=== PATIENT | male | born 1965 | race Two or more races ===

== ENCOUNTER 2018-02-27 14:38 | Emergency (ER) | payer OTHER ==
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
[2018-02-27 14:59] VITALS: BMI 32.3
[2018-02-27 15:44] LABS: BASO % 0.4 % (0-2.0); EOS % 1.1 % (0-4.5); HEMATOCRIT 40.3 % (35.4-49); HEMOGLOBIN 13.2 GM/dL (11.7-16.9); LYMPH % 8.2 % (8-40); MCH 28.3 pg (25.7-33.7); MCHC 32.7 g/dl (32.0-35.9); MEAN CELL VOLUME 86.3 fl (80-96); MONO % 6.2 % (3.8-10.2); NEUT % 84.1 % (42.8-82.8); PLATELET COUNT 206 K/MM3 (134-434); RBC 4.67 M/mm3 (4.00-5.60); RDW 13.9 % (11.9-15.9); WHITE BLOOD COUNT 9.2 K/mm3 (4.0-10.0)
--- NOTE | 2018-02-27 16:28 | EKG ---
Test Reason : Blood Pressure : / mmHG Vent. Rate : 096 BPM Atrial Rate : 096 BPM P-R Int : 176 ms QRS Dur : 094 ms QT Int : 380 ms P-R-T Axes : 049 007 043 degrees QTc Int : 480 ms NORMAL SINUS RHYTHM POSSIBLE LEFT ATRIAL ENLARGEMENT PROLONGED QT ABNORMAL ECG NO PREVIOUS ECGS AVAILABLE Confirmed by MD Eran, Yovani ([id number]) on 02/27/2018 4:27:44 PM Referred By: Confirmed By:Yovani Barillas MD
[2018-02-27 16:30] LABS: ALBUMIN 3.9 g/dl (3.4-5.0); ALK PHOS 100 U/L (45-117); ANION GAP 7 MMOL/L (8-16); BILIRUBIN,TOTAL 0.3 mg/dL (0.2-1); BLOOD UREA NITROGEN 13 mg/dL (7-18); CALCIUM 8.7 mg/dL (8.5-10.1); CHLORIDE 101 mmol/L (98-107); CO2 31 mmol/L (21-32); CREATININE 0.7 mg/dL (0.55-1.3); GLUCOSE,RANDOM 104 mg/dL (74-106); POTASSIUM 3.4 mmol/L (3.5-5.1); SGOT/AST 25 U/L (15-37); SGPT/ALT 55 U/L (13-61); SODIUM 139 mmol/L (136-145); TOT PROT 7.7 g/dl (6.4-8.2)
[2018-02-27] MEDS ORDERED: ACETAMINOPHEN 325 MG TABLET (FP) PO ONE (16:33)
[2018-02-27] MEDS ORDERED: KETOROLAC TROMETHAMINE 15 MG/ML VIAL IVPUSH ONE (16:33)
[2018-02-27] MEDS ORDERED: LOSARTAN POTASSIUM 50 MG TABLET (FP) PO ONE (16:45)
[2018-02-27] MEDS ORDERED: HYDROCHLOROTHIAZIDE 25 MG TABLET (FP) PO ONE (16:45)
[2018-02-27] MEDS ORDERED: POTASSIUM CHLORIDE TABS 20 MEQ TABLET.ER (FP) PO ONE ×2 (16:46→16:56)
--- NOTE | 2018-02-27 16:48 | PDOC ---
Attending Attestation - HPI HPI: 02/27/18 16:48 The patient is a 52 year old male with a past medical history of HTN, HLD, chronic back pain (takes percocet), and drug and alcohol abuse on methadone here today for evaluation of chest pain. The patient reports that his chest pain began at noon today after drinking two cups of coffee. He describes his chest pain as a 7/10 in severity, stabbing in quality, worse to touch, and localized to the midline of the chest. The patient notes that one week ago the patient hit a 15 lb dumbbell against his chest and had bruising which has since cleared up. He reports mild associated SOB and one time incident of diarrhea this morning. He also notes that he feels like his heart is racing. Patient denies headache, lightheadedness. Denies fever, chills. Denies any symptoms of GERD. Denies nausea, vomiting, abdominal pain. Denies lower extremity edema. Denies urinary symptoms. Denies neurologic symptoms. Allergies: fish Social history: confirms drug and alcohol use (drinks one six pack of beer per day, last drink last night) PCP: Rodney Topete - Physicial Exam PE: 02/27/18 16:48 NAD, well appearing, MMM, nl conjunctiva, anicteric; neck supple. lungs clear, RRR, +reproducible mid sternal Chest wall tenderness, no skin changes/ ecchymosis. abdomen soft nontender. HERNADEZ x4, no focal neuro deficits. No peripheral edema. normal color for ethnicity, WWP. <Yovani Sanchez - Last Filed: 02/27/18 16:48> - Resident Resident Name: Saurabh Johnson - ED Attending Attestation I have performed the following: I have examined & evaluated the patient, The case was reviewed & discussed with the resident, I agree w/resident's findings & plan - Medical Decision Making 02/27/18 16:51 Zack 52 year old male with a past medical history of HTN, HLD, chronic back pain (takes percocet), and drug and alcohol abuse on methadone with CP. + caffeine intake. +remote dumbbell against chest ~1 week ago. Admit to drinking ETOH regularly Vital signs reviewed, hypertensive; low grade temp, but nontoxic/septic appearing, reassuring labs. Prior notes reviewed, including admissions, discharges and consultations. laboratory results and imaging reviewed, basic labs and lytes wnl, no acute etoh w/d symptoms, is noncompliant with home regimen of antihypertensives. CXR_clear. Cardiac panel neg trop, 2nd trop to ensure no dynamic changes and reassuringly remained negative. EKG normal sinus rhythm, borderline QTc 480ms, narrow QRS, ST and T wave segments and morphology normal. ED course: unremarkable, tylenol and toradol for analgesia, +chest wall reproducible tenderness, no radiation of pain and remote trauma, so likely msk/ costochondritis. potassium repleted, mildly low. +hypertensive, noncompliant with meds, given home dose of hctz and lisinopril orally, recheck improving and normalizing BP after appropriate tx. no e/o organ damage and normal status, pain controlled and 2 neg trops without acute EKG abnormalities. Rx hctz and lisinopril, as he ran out of meds. Dispo: Pt to be discharged in stable condition. Patient and family made aware of impression and plan, return precautions discussed (including but not limited to worsening pain or symptoms), fevers, or signs of infection, chest pain, respiratory distress, inability to tolerate oral intake, dehydration, syncope, or neurologic changes). Follow up with PMD and/or specialist as recommended, follow up information provided, take medications as instructed for duration of time. continue with supportive care, avoid triggers and precipitants. All questions answered to patient's satisfaction and expressed understanding and comfort with this. 02/27/18 19:36 <Pia Alicea - Last Filed: 02/27/18 19:37>
[2018-02-27] MEDS ORDERED: ACETAMINOPHEN 325 MG TABLET (FP) ONE (16:56)
[2018-02-27] MEDS ORDERED: HYDROCHLOROTHIAZIDE 25 MG TABLET (FP) ONE (16:56)
[2018-02-27] MEDS ORDERED: KETOROLAC TROMETHAMINE 15 MG/ML VIAL ONE (16:57)
[2018-02-27 19:11] VITALS: BP 158/92; PULSE 98; TEMP 98.9
== END 2018-02-27 19:47 | disposition home or self-care (01) ==
LOC: JER 14:38
PROC: 3E0333Z Introduction of Anti-inflammatory into Peripheral Vein, Percutaneous Approach (ICD-10-PCS; principal; 2018-02-27)
DX: R07.9 Chest pain, unspecified (principal); I10 Essential (primary) hypertension; E78.00 Pure hypercholesterolemia, unspecified; F11.20 Opioid dependence, uncomplicated
CPT/HCPCS: 36415; 71046-TC-FY; 80053; 84484; 85025; 93005; 93010; 96374; 99285-25

== ENCOUNTER 2018-09-12 12:46 | Emergency (ER) | payer OTHER | END 2018-09-12 14:02 | disposition home or self-care (01) | LOC: JERFT 12:46 ==

== ENCOUNTER 2019-02-15 13:41 | Emergency (ER) | payer OTHER ==
[2019-02-15 13:48] VITALS: BP 159/83; PULSE 95; TEMP 98.5; BMI 36.4
[2019-02-15] MEDS ORDERED: AMOX TR/POT CLAV 875MG/125MG TABLETS (FP) PO ONE (15:08)
[2019-02-15] MEDS ORDERED: DIPHTH,PERTUSS(ACELL),TET 0.5 ML DISP.SYRIN IM ONE ×2 (15:08→15:36)
[2019-02-15] MEDS ORDERED: AMOX TR/POT CLAV 875MG/125MG TABLETS (FP) ONE (15:36)
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
== END 2019-02-15 15:56 | disposition home or self-care (01) ==
LOC: JERFT 13:41
PROC: 3E0234Z Introduction of Serum, Toxoid and Vaccine into Muscle, Percutaneous Approach (ICD-10-PCS; principal; 2019-02-15)
DX: S61.452A Open bite of left hand, initial encounter (principal); W54.0XXA Bitten by dog, initial encounter; Y93.89 Activity, other specified; Y92.89 Other specified places as the place of occurrence of the external cause; Z88.8 Allergy status to other drugs, medicaments and biological substances; Z91.013 Allergy to seafood
CPT/HCPCS: 90471; 90715; 99281-25

== ENCOUNTER 2019-02-27 13:43 | Emergency (ER) | payer OTHER ==
[2019-02-27 13:55] VITALS: BP 142/75; PULSE 92; TEMP 98.5; BMI 37.1
--- NOTE | 2019-02-27 13:58 | PDOC ---
Rapid Medical Evaluation Chief Complaint: Bite Time Seen by Provider: 02/27/19 13:54 Medical Evaluation: Allergies Allergy/AdvReac Type Severity Reaction Status Date / Time meloxicam AdvReac Intermediate Swelling Verified 02/27/19 13:55 fish AdvReac Mild Itching Uncoded 02/27/19 13:55 Vital Signs Temp Pulse Resp BP Pulse Ox 98.5 F 92 H 18 142/75 97 02/27/19 13:53 02/27/19 13:53 02/27/19 13:53 02/27/19 13:53 02/27/19 13:53 02/27/19 13:56 Pt presents for evaluation of a dog bite to his L hand sustained one week ago. Seen in our ED and was treated with Augmentin. He is reporting swelling today. He finished the antibiotics. Tetanus updated last visit. Exam: minimally erythematous linear dog bite to dorsal L hand. Minimal swelling. No obvious cellulitis Orders: Nothing Pt to proceed to the ER for evaluation Discharge Disposition - Diagnosis Dog bite Qualifiers: Encounter type: subsequent encounter Qualified Code(s): W54.0XXD - Bitten by dog, subsequent encounter - Referrals - Patient Instructions - Post Discharge Activity
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
== END 2019-02-27 14:39 | disposition home or self-care (01) ==
LOC: JERFT 13:43
DX: S61.452A Open bite of left hand, initial encounter (principal); W54.0XXA Bitten by dog, initial encounter; Y93.89 Activity, other specified; Y92.89 Other specified places as the place of occurrence of the external cause
CPT/HCPCS: 99281-25

== ENCOUNTER 2020-10-21 10:58 | Emergency (ER) | payer OTHER ==
[2020-10-21 11:13] VITALS: TEMP 98.3; BMI 38.7
[2020-10-21] MEDS ORDERED: ACETAMINOPHEN 1000 MG/100 ML VIAL (NON FORMULARY) IVPB ONE (13:01)
[2020-10-21] MEDS ORDERED: SODIUM CHLORIDE 1,000 ML IV STA (13:01)
[2020-10-21] MEDS ORDERED: ACETAMINOPHEN INJECTION 100 ML IVPB ONE (13:22)
[2020-10-21 13:32] LABS: BASO % 0.8 % (0-2.0); EOS % 1.5 % (0-4.5); HEMOGLOBIN 13.8 GM/dL (11.7-16.9); LYMPH % 13.9 % (8-40); MCH 28.5 pg (25.7-33.7); MCHC 33.6 g/dl (32.0-35.9); MEAN CELL VOLUME 84.9 fl (80-96); MEAN PLT VOLUME 7.9 fl (7.5-11.1); NEUT % 76.8 % (42.8-82.8); PLATELET COUNT 276 10^3/uL (134-434); RBC 4.82 M/mm3 (4.00-5.60); RDW 14.5 % (11.9-15.9); WHITE BLOOD COUNT 9.7 K/mm3 (4.0-10.0)
[2020-10-21 13:35] LABS: EPI CELLS 9 /uL (0-25.1); HYALINE CASTS 11 /uL (0-3.1); PH,URINE 5.5 (5.0-8.0); URINE APPEARANCE CLEAR; URINE BACTERIA 7 /uL (0-1359); URINE BILIRUBIN 1+ (NEGATIVE); URINE COLOR DK YELLOW; URINE GLUCOSE (UA) NEGATIVE (NEGATIVE); URINE KETONE 1+ (NEGATIVE); URINE LEUK ESTERASE TRACE (NEGATIVE); URINE NITRITE NEGATIVE (NEGATIVE); URINE PROTEIN 1+ (NEGATIVE); URINE RBC 10 /uL (0-23.9); URINE WBC 5 /uL (0-25.8)
[2020-10-21 13:45] LABS: INR 0.97 (0.83-1.09); PROTHROMBIN TIME (PATIENT) 11.7 SEC (9.7-13.0)
[2020-10-21 13:59] LABS: CALCIUM 9.6 mg/dL (8.5-10.1)
[2020-10-21 14:01] LABS: ALBUMIN 4.2 g/dl (3.4-5.0); BLOOD UREA NITROGEN 20.9 mg/dL (7-18)
[2020-10-21 14:04] LABS: BILIRUBIN,TOTAL 0.3 mg/dL (0.2-1); TOT PROT 8.1 g/dl (6.4-8.2)
[2020-10-21 14:57] VITALS: BP 145/78; PULSE 90
[2020-10-21 15:18] LABS: URINE CRYSTALS CA OXALATE/FEW /hpf
== END 2020-10-21 17:40 | disposition home or self-care (01) ==
LOC: JER 10:58
PROC: 3E0333Z Introduction of Anti-inflammatory into Peripheral Vein, Percutaneous Approach (ICD-10-PCS; principal; 2020-10-21)
PROC: 3E0337Z Introduction of Electrolytic and Water Balance Substance into Peripheral Vein, Percutaneous Approach (ICD-10-PCS; 2020-10-21)
DX: K40.01 Bilateral inguinal hernia, with obstruction, without gangrene, recurrent (principal)
CPT/HCPCS: 36415; 74176-TC; 80053; 81003; 85025; 85610; 87086; 96361; 96374; 99284-25; J0131

== ENCOUNTER 2022-08-10 19:10 | Emergency (ER) | payer OTHER ==
[2022-08-10 19:31] VITALS: BP 130/66; PULSE 88; RESP 18; TEMP 98.1; BMI 38.7
[2022-08-10] MEDS ORDERED: METOCLOPRAMIDE HCL INJECTION 10 MG/2 ML VIAL IVPUSH ONE (20:45)
[2022-08-10] MEDS ORDERED: LACTATED RINGERS SOLUTION 1,000 ML/1,000 ML INFUS.BAG IV STA (20:45)
[2022-08-10] MEDS ORDERED: chlordiazePOXIDE HCL 25 MG CAPSULE PO ONE (21:30)
[2022-08-10] MEDS ORDERED: chlordiazePOXIDE HCL 25 MG CAPSULE ONE (22:05)
[2022-08-10] MEDS ORDERED: METOCLOPRAMIDE HCL INJECTION 10 MG/2 ML VIAL ONE (22:05)
[2022-08-10 22:17] LABS: BASO % 0.8 % (0-2.0); EOS % 0.7 % (0-4.5); HEMATOCRIT 38.1 % (35.4-49); HEMOGLOBIN 12.7 GM/dL (11.7-16.9); LYMPH % 8.7 % (8-40); MCH 28.2 pg (25.7-33.7); MCHC 33.4 g/dl (32.0-35.9); MEAN CELL VOLUME 84.4 fl (80-96); MEAN PLT VOLUME 7.9 fl (7.5-11.1); MONO % 4.1 % (3.8-10.2); NEUT % 85.7 % (42.8-82.8); PLATELET COUNT 247 10^3/uL (134-434); RBC 4.51 M/mm3 (4.00-5.60); RDW 14.4 % (11.9-15.9); WHITE BLOOD COUNT 12.4 K/mm3 (4.0-10.0)
[2022-08-10 22:45] LABS: POTASSIUM 4.5 mmol/L (3.5-5.1)
[2022-08-10 22:53] LABS: BLOOD UREA NITROGEN 28.4 mg/dL (7-18)
[2022-08-10 22:54] LABS: BILIRUBIN,TOTAL 0.4 mg/dL (0.2-1); CALCIUM 9.7 mg/dL (8.5-10.1); MAGNESIUM 1.8 mg/dL (1.8-2.4)
[2022-08-10 22:55] LABS: TOT PROT 7.9 g/dl (6.4-8.2)
== END 2022-08-11 01:11 | disposition home or self-care (01) ==
LOC: JER 19:10
PROC: 3E033GC Introduction of Other Therapeutic Substance into Peripheral Vein, Percutaneous Approach (ICD-10-PCS; principal; 2022-08-10)
PROC: 3E0337Z Introduction of Electrolytic and Water Balance Substance into Peripheral Vein, Percutaneous Approach (ICD-10-PCS; 2022-08-10)
DX: R51.9 Headache, unspecified (principal); R42 Dizziness and giddiness; R53.1 Weakness; R20.2 Paresthesia of skin; F10.10 Alcohol abuse, uncomplicated; R07.89 Other chest pain; Z79.891 Long term (current) use of opiate analgesic; Y90.9 Presence of alcohol in blood, level not specified
CPT/HCPCS: 36415; 70450-TC; 71046-TC-FY; 80053; 83735; 84484; 85025; 93005; 93010; 99285-25